=== PATIENT | female | born 1960 | race Caucasian/White ===

== ENCOUNTER → 2017-03-08 | Outpatient (CLI) | payer BC ==
[~2017-03-08] MED LIST: AZIT250T81 PO; PRED20TA PO
[2017-03-08 10:39] VITALS: BP 128/81
--- NOTE | 2017-03-08 10:39 | Urgent Care T Sheet Gen (E) ---
Intake General Temperature (Fahrenheit): 98.3 Pulse: 96 Blood Pressure Systolic: 128 Blood Pressure Diastolic: 81 Respirations: 20 SPO2: 100 Description of Symptoms Patient presents with worsening illness since Sunday. patient states she has been taking Claritin for her allergies however doesn't think it's helping. On Sunday, noticed a sorer throat and raspy voice. Can feel a lot of post nasal drainage. States she has a constant tickle in her throat which causes her to cough. Lungs don't feel congested. No fever. Her allergies are usually worse in fall. History of Present Illness Allergies: Coded Allergies: No Known Allergies (Verified Allergy, 07/25/12) Respiratory Constitutional Symptoms: No syptoms reported EENTM: Nose Congestion Throat pain Respiratory: Cough Cardiovascular: No symptoms reported Gastrointestinal/Abdominal: No symptoms reported All Other Systems Reviewed Remaining Systems: All other systems reviewed with negative findings Past Csbucgc-Rjffwo-Rpdqly Hx Surgeries/Hospitalizations Hospitalization/Surgery Hx: None Respiratory Comment: Allergies Cardiovascular Cardiovascular History: None Neuro/Muscular Neuro/Muscular History: None Genitouinary Genitourinary History: None Gastrointestinal GI/Endocrine History: None Integumentary Integumentary History: None Cancer History of Cancer?: No Physical Exam Physical Exam General Appearance: WD/WN No apparent distress Eyes, Ears, Nose, Throat Ex: TMs normal Pharyngeal erythema (very red and irritated. thick PND noted) Other (red, swollen nasal turbinates worse on R side) Neck Exam: Supple Lymphadenopathy Respiratory Exam: Lungs clear (constant dry irritated cough throughout exam.) Normal breath sounds Cardiovascular Exam: Regular rate, rhythm Departure Urgent Care Impression Impression: Primary Impression: Seasonal allergies Qualified Code: J30.1 - Allergic rhinitis due to pollen Additional Impressions: Cough Sinusitis Qualified Code: J01.00 - Acute maxillary sinusitis, unspecified Departure Disposition: HOME OR SELF-CARE Condition: Stable Referrals: JENNY STERLING MD (PCP) Additional Instructions: I have started the patient on Prednisone to help lessen her allergy symptoms. Continue taking Claritin daily I have also placed her on a Zpak for treatment of her secondary infection Rest. Fluids No NSAIDS while on steroid Return as needed Patient understands DC instructions. All questions were answered. Scripts Prednisone 20 Mg [id number] Mg PO DAILY #6 TAB Prov:STEPHON RAMOS 03/08/17 Azithromycin (Zithromax Z-Tucker)6 Tab/Pkt [id number] Mg PO SEE INSTRUCTIONS #6 TAB Ref 0 Day One: Take 2 tablets by mouth Days Two-Five: Take 1 tablet by mouth Prov:STEPHON RAMOS 03/08/17 End of report . STEPHON RAMOS March 08, 2017 10:39
== END ==
LOC: MHUC 10:19
PROVIDERS: ATTEND Physician Assistant
DX: J30.1 Allergic rhinitis due to pollen (principal); R05 Cough; J01.00 Acute maxillary sinusitis, unspecified